=== PATIENT | male | born 2000 | race Caucasian/White ===

== ENCOUNTER 2022-05-02 18:24 | Emergency (ER) | payer MEDICAID ==
[~2022-05-02] VITALS: Ht 182.9 cm; Wt 71.7 kg
[2022-05-02 18:30] VITALS: BP 140/99
[2022-05-02] MEDS: FLUORESCEIN OPTH STRIP 1 MG OP ONE (18:40)
--- NOTE | 2022-05-02 21:22 | NUR ---
Patient ambulated to bed 2.
[2022-05-02] MEDS ORDERED: FLUORESCEIN OPTH STRIP 1 MG ONE (21:29)
[2022-05-02] MEDS: TETRACAINE HCL/PF 0.5% OPTH 4 ML BTL OP ONE (21:37)
[2022-05-02] MEDS ORDERED: ACET-8386 PO (22:16)
[2022-05-02] MEDS ORDERED: IBUP-2213 PO (22:16)
[2022-05-02] MEDS ORDERED: ERYT5OIN51 OP (22:16)
--- NOTE | 2022-05-02 22:22 | NUR ---
21/M C/O RT EYE PAIN X3 HOURS. 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 PT STATED HE HAS A MIGRAINE. DENIES N/V/D, SOB AND CHEST PAIN. A&OX4, SKIN INTACT, VITALS WNL, PERRLA ENTACT, AND STEADY GAIT. PMH: DENIES NKA
== END 2022-05-02 22:30 | disposition home or self-care (01) ==
LOC: MED 18:24
DX: S05.01XA Injury of conjunctiva and corneal abrasion without foreign body, right eye, initial encounter (principal); Z90.49 Acquired absence of other specified parts of digestive tract; Y92.89 Other specified places as the place of occurrence of the external cause; X58.XXXA Exposure to other specified factors, initial encounter; Y93.89 Activity, other specified; Y99.8 Other external cause status
CPT/HCPCS: 99283